=== PATIENT | female | born 1930 | race Caucasian/White ===

== ENCOUNTER 2016-04-03 15:15 | Inpatient (IN) | payer MEDICARE, OTHER ==
[~2016-04-03] VITALS: Ht 160 cm; Wt 72.6 kg
[~2016-04-03 15:15] MED LIST: COMBIGAN OPHT DR5 ML EACH EYE; HYDROCHLOROTHIA25 MG PO; LEVAQUIN500 MG PO; PLAQUENIL200 MG PO; PREDNISONE20 MG PO; STERAPRED 5MG 125 MG
[2016-04-03 17:40] VITALS: BP 129/79; BMI 28.4
[2016-04-03] MEDS ORDERED: BAYER ASPIRIN325 MG PO (19:29)
[2016-04-03] MEDS ORDERED: ACETAMINOPHEN325 MG PO (19:29)
--- NOTE | 2016-04-03 19:30 | NUR ---
PT IS RESTING IN BED WITH EYES OPEN. ALERT TO SELF ONLY. CONFUSED TO TIME PLACE AND SITUATION. UNABLE TO REORIENT PT. PT STATES: "IM ONLY HERE BECAUSE MY DAUGHTER AND SON BROUGHT ME HERE TO GET ME A ROOM." SR'S ARE UP X 3 IN BED. CALL LIGHT AND BEDSIDE TABLE ARE WITHIN EASY REACH.
[2016-04-03] MEDS ORDERED: ASPIRIN325 MG PO (19:31)
[2016-04-03] MEDS ORDERED: DULCOLAX5 MG PO (19:31)
[2016-04-03] MEDS ORDERED: ALPHAGAN 0.2%5 ML EACH EYE (19:32)
[2016-04-03] MEDS ORDERED: TIMOPTIC 0.5 % O5 ML EACH EYE (19:33)
[2016-04-03] MEDS ORDERED: BENTYL10 MG PO (19:34)
[2016-04-03] MEDS ORDERED: COLACE100 MG PO (19:35)
[2016-04-03] MEDS ORDERED: LOVENOX30 MG/0.3 SC (19:36)
[2016-04-03] MEDS ORDERED: LEXAPRO10 MG PO (19:39)
[2016-04-03] MEDS ORDERED: FUROSEMIDE20 MG PO (19:40)
[2016-04-03] MEDS ORDERED: HALDOL5 MG PO (19:41)
[2016-04-03] MEDS ORDERED: PLAQUENIL200 MG PO (19:42)
[2016-04-03] MEDS ORDERED: SYNTHROID50 MCG PO (19:42)
[2016-04-03] MEDS ORDERED: LISINOPRIL2.5 MG PO (19:43)
[2016-04-03] MEDS ORDERED: PRAVACHOL20 MG PO (19:44)
[2016-04-03] MEDS ORDERED: K-DUR20 MEQ PO (19:44)
[2016-04-03] MEDS ORDERED: PREDNISONE5 MG PO (19:46)
[2016-04-03] MEDS ORDERED: BACTRIM DS TABL1 TAB PO (19:47)
--- NOTE | 2016-04-03 21:43 | NUR ---
PT RESTING IN BED WITH EYES CLOSED. AWOKE EASILY TO VERBAL STIMULI. PT REFUSED TO TAKE ANY MEDICATIONS. SHE STATES: "IM NOT TAKING ANY MEDICINE FROM YOU, I ONLY TAKE MY OWN MEDICINE." I TRIED NUMEROUS TIMES TO TELL PT THAT THIS WAS HER MEDICINE AND ENCOURAGE HER TO TAKE IT. PT BECAME INCREASINGLY MORE AND MORE ANGRY AT ME, TELLING TO TO LEAVE HER ALONE.
--- NOTE | 2016-04-03 22:06 | NUR ---
PT CALLED FOR ASSIST TO THE BATHROOM. SHE ADAMANTLY REFUSED TO LET A MALE TAKE TO INTO THE BATHROOM.
--- NOTE | 2016-04-03 22:38 | NUR ---
PT STATED AT THIS TIME: "OH TO HECK WITH IT, I'D STAND MY GROUND, BUT I JUST HAVE TO PEE SO BAD. ASSISTED UP TO WC WITH MOD ASSIST. ASSISTED INTO BATHROOM. VOIDED INDEPENDENTLY.
--- NOTE | 2016-04-04 01:29 | NUR ---
RESTING IN BED WITH EYES CLOSED.
--- NOTE | 2016-04-04 03:36 | NUR ---
RESTING QUIETLY IN BED WITH EYES CLOSED. NO DISTRESS NOTED.
--- NOTE | 2016-04-04 03:42 | NUR ---
pt resting on left side, respirations regular and unlabored. approximately 2230 pt was praying and singing hymns. pt appears confused as to surroundings. no s/s of acute distress.
--- NOTE | 2016-04-04 06:24 | NUR ---
PT ASSISTED UP TO BATHROOM WITH MOD ASSIST. VOIDED WITHOUT DIFFICULTY. PT INSISTED ADAMANTLY TO GET DRESSED. I ENCOURAGED HER TO WAIT FOR HER OT BATH THIS AM, BUT SHE WOULD NOT AGREE TO DO IT. PT DRESSED, AND AM ADLS DONE.
[2016-04-04 08:14] LABS: BASOPHILS 0.3 % (0.0-2.0); EOSINOPHILS 0.3 % (0-7); HEMATOCRIT 43.8 % (36.0-48.0); HEMOGLOBIN 13.6 g/dL (12-16); IMMATURE GRANULOCYTES 0.2 % (0-5); LYMPHOCYTES 15.1 % (15-50); MCH 28.5 pg (26.0-34.0); MCHC 31.1 g/dL (31.0-37.0); MCV 91.8 fL (80.0-100.0); MEAN PLATELET VOLUME 11.4 fL (7.4-10.4); MONOCYTES 15.3 % (2-11); NEUTROPHILS 68.8 % (40-80); RBC 4.77 10x6/uL (4.00-5.40); RDW 14.3 % (11.5-14.5); WBC 6.5 10x3/uL (4.8-10.8)
[2016-04-04 08:18] LABS: PLATELET COUNT 211 10x3/uL (130-400)
[2016-04-04 09:00] VITALS: BP 115/54
--- NOTE | 2016-04-04 09:15 | NUR ---
SITTING UP IN WHEELCHAIR AND ASSISTED TO THERAPY. NO FALLS NOTED.
--- NOTE | 2016-04-04 11:10 | NUR ---
RESTING IN BED ON BACK WITH SIDERAILS UPX2.
[2016-04-04 11:41] VITALS: Ht 160 cm; Wt 72.6 kg
--- NOTE | 2016-04-04 13:17 | NUR ---
RESTING IN BED WITHOUT ANY PAIN NOTED.
[2016-04-04 14:20] VITALS: BP 150/71
--- NOTE | 2016-04-04 14:48 | NUR ---
PT REFUSES XANAX AND POTASSIUM PILL TODAY.
--- NOTE | 2016-04-04 15:42 | NUR ---
PT OOB AND SITTING IN CHAIR TALKING TO ROOMMATE. CONVINCED PT TO GO TO THE BR AND BACK TO BED. BOX ALARM PUT BACK ON. PT'S FAMILY CAME IN THE ROOM AFTER BACK TO BED.
--- NOTE | 2016-04-04 19:30 | NUR ---
PT IS RESTING IN BED WITH EYES OPEN. ALERT TO SELF. CONFUSED TO TIME, PLACE AND SITUATION. PT CANNOT REMEMBER ME FROM LAST NIGHT. SHE REFUSED TO TAKE HER 1900 LOVENOX, STATING SHE DID NOT TAKE MEDICINE FROM [facility]. VSS. SR'S ARE UP X 3 IN BED. CALL LIGHT AND BEDSIDE TABLE ARE WITHIN EASY REACH. BOX ALARM IS ON.
[2016-04-04 20:01] VITALS: BP 134/61
--- NOTE | 2016-04-04 21:46 | NUR ---
PT RESTING QUIETLY IN BED WITH EYES CLOSED. RESPS ARE EVEN AND UNLABORED. NO ACUTE DISTRESS NOTED.
--- NOTE | 2016-04-05 00:01 | NUR ---
RESTING IN BED WITH EYES CLOSED.
--- NOTE | 2016-04-05 03:00 | NUR ---
PT RESTING IN BED WITH EYES CLOSED.
--- NOTE | 2016-04-05 04:30 | NUR ---
PT RESTING QUIETLY, NO S/S OF ACUTE DISTRESS.
--- NOTE | 2016-04-05 05:53 | NUR ---
PT RESTING IN BED WITH EYES CLOSED. AWOKE EASILY TO VERBAL STIMULI. PT TOLERATED MEDS THIS AM WITHOUT ARGUMENT. NO NEEDS VOICED.
[2016-04-05 09:00] VITALS: BP 100/56
--- NOTE | 2016-04-05 09:15 | NUR ---
PT TOOK AM MEDS WITHOUT REFUSING. SITTING UP IN BED AND BOX ALARM ON. CALLIGHT IN REACH.
--- NOTE | 2016-04-05 12:58 | NUR ---
SLEEPING IN BED WITH SIDERAILS UP X2. BOX ALARM ON.
--- NOTE | 2016-04-05 15:10 | NUR ---
ASSISTED TO BR FROM THE BED WITH BOX ALARM ON. NO FALLS NOTED.
--- NOTE | 2016-04-05 17:44 | NUR ---
PT VOMITED SMALL UNDIGESTED FOOD AND STATES I FEEL BETTER AND INSTRUCTED PT NOT TO EAT ANYMORE.
--- NOTE | 2016-04-05 19:16 | NUR ---
PT IS RESTING IN BED WITH EYES OPEN. ALERT AND ORIENTED X 2. CONFUSED TO TIME AND SITUATION. REORIENTS EASILY, BUT FORGETS AGAIN QUICKLY. PT REPORTED TO HAVE N/V AFTER SUPPER, BUT DENIES ANY AT THIS TIME. VSS. PT IS VERY TALKATIVE. SR'S ARE UP X 3 IN BED. CALL LIGHT AND BEDSIDE TABLE ARE WITHIN EASY REACH.
[2016-04-05 20:00] VITALS: BP 112/59
--- NOTE | 2016-04-05 22:01 | NUR ---
PT. IN BED WITH HOB UP FOR COMFORT. EYES ARE CLOSED, RESP. EVEN AND CALL LIGHT WITHIN REACH.
--- NOTE | 2016-04-05 22:10 | NUR ---
PT RESTING IN BED WITH EYES CLOSED. RESPS ARE EVEN AND UNLABORED. NO ACUTE DISTRESS NOTED.
--- NOTE | 2016-04-06 00:30 | NUR ---
PT ASSISTED TO THE BATHROOM WITH MOD ASSIST. VOIDED WITHOUT DIFFICULTY. ASSISTED BACK TO BED. BOX ALARM PLACED ON PT.
--- NOTE | 2016-04-06 03:10 | NUR ---
RESTING QUIETLY IN BED WITH EYES CLOSED.
--- NOTE | 2016-04-06 05:54 | NUR ---
PT RESTING IN BED WITH EYES CLOSED. AWOKE EASILY TO VERBAL STIMULI. TOLERATED AM MEDS WITHOUT COMPLAINT. NO NEEDS VOICED.
[2016-04-06 06:34] LABS: BASOPHILS 0.3 % (0.0-2.0); EOSINOPHILS 0.8 % (0-7); HEMATOCRIT 43.9 % (36.0-48.0); HEMOGLOBIN 13.4 g/dL (12-16); IMMATURE GRANULOCYTES 0.2 % (0-5); MCHC 30.5 g/dL (31.0-37.0); MCV 91.8 fL (80.0-100.0); MEAN PLATELET VOLUME 11.9 fL (7.4-10.4); MONOCYTES 14.5 % (2-11); NEUTROPHILS 65.2 % (40-80); PLATELET COUNT 215 10x3/uL (130-400); RBC 4.78 10x6/uL (4.00-5.40); RDW 14.3 % (11.5-14.5); WBC 6.6 10x3/uL (4.8-10.8)
--- NOTE | 2016-04-06 07:00 | NUR ---
Received pt. in room in wheelchair at the beginning of this shift. She had just returned from the bathroom. She was alert but confused. She denied any pain or discomfort. Vital signs: Temp. 97.6, pulse 72, resp. 14, b/p 121/58, 02Sat. 97%. Will be monitoring her and assisting prn with adl's.
[2016-04-06 07:09] LABS: ANION GAP 11.3 mmol/L (8-16); CALCIUM 8.9 mg/dL (8.5-10.1); CARBON DIOXIDE 30.1 mmol/L (21.0-32.0); CREATININE - SERUM 0.9 mg/dL (0.6-1.3); POTASSIUM - SERUM 4.4 mmol/L (3.5-5.1)
[2016-04-06 09:40] VITALS: BP 121/58
--- NOTE | 2016-04-06 12:18 | NUR ---
Pt. is sitting in her wheelchair eatting her lunch in her room. No signs of any discomfort or distress. Pt. got a shower this morning. Bed linens changed as well. Call light is in reach.
--- NOTE | 2016-04-06 14:44 | RHP ---
PATIENT: SAROJ WELCH MEDICAL RECORD: [id number] ACCOUNT: [id number] LOCATION:[facility]8 : 30 ADMISSION DATE: 04/03/16 REHABILITATION HISTORY AND PHYSICAL EXAMINATION POST ADMISSION PHYSICIAN EXAMINATION DATE OF ADMISSION: 04/03/2016 MAIN DIAGNOSES: Acute right middle cerebral artery infarction, acute encephalopathy secondary to urinary tract infection. HISTORY OF PRESENT ILLNESS: The patient is an 86-year-old female patient, who is admitted to acute rehab for acute ischemic stroke. She presented to the Emergency Department via EMS on March 29 after the patient pushing her lifeline did have fallen off the commode due unable to get up secondary to left-sided weakness affecting her face, arm and leg. Her symptoms improved in the ED. She has a history of right middle cerebral artery infarction in 2011 with reported residual mid left leg weakness. CT showed a remote stroke on the right middle cerebral artery territory, look more extensive on recent CT compared to 2012. There is some moderate small vessel ischemic changes also on the scan. She is doing somewhat better, but would definitely require inpatient rehab to get back to prior level of functioning. COMORBIDITIES: Include urinary tract infection, ejection fraction of 15%, dysarthria, left-sided weakness, coronary artery disease, rheumatoid arthritis, hypothyroidism, autoimmune disease, congestive heart failure, prior cerebrovascular accident, glaucoma, osteoporosis, advanced aged, left foot pain secondary to recent, a former smoker, and frequent falls. PAST MEDICAL HISTORY: Significant for cerebrovascular accident, rheumatoid arthritis, coronary artery disease, hypertension, chronic obstructive pulmonary disease, hypothyroidism, autoimmune disease, congestive heart failure, colon polyps, glaucoma, incontinence, osteoporosis and some depression. PAST SURGICAL HISTORY: Includes an ankle fusion, cataract removal, hysterectomy and pacemaker placement. ALLERGIES: PENICILLIN AND CELEBREX. CURRENT MEDICATIONS: Include Florinex 460 mg daily, prednisone 5 mg daily, lisinopril 2.5 mg daily, Synthroid 50 mcg daily, furosemide 10 mg daily, Lexapro 10 mg daily, Bactrim 1 tab b.i.d., Pravachol 20 mg at bedtime, potassium 10 mEq t.i.d., Plaquenil 200 mg b.i.d., Lovenox 30 mg subQ q.12 hours, Colace 100 mg b.i.d., Bentyl 10 mg daily, Timoptic eyedrops b.i.d., Alphagan eyedrops b.i.d., and acetaminophen 325 mg q.4 hours p.r.n. HABITS: No current alcohol or tobacco use. He is a former smoker. FAMILY HISTORY: Noncontributory. SOCIAL HISTORY: The patient is . She lives alone and would like to get back to her prior level of function and return home. REVIEW OF SYSTEMS: GENERAL: Does complain of some weakness. HISTORY AND PHYSICAL [id number] SAROJ WELCH HEENT: Denies cold, cough, or congestion. CARDIOVASCULAR: Denies chest pain. LUNGS: Does not complain of any shortness of breath. PHYSICAL EXAMINATION: VITAL SIGNS: Stable, afebrile. GENERAL: Elderly female in no acute distress upon exam. HEENT: Normocephalic and atraumatic. Mucosa is moist. NECK: Supple. No lymphadenopathy. LUNGS: Clear at this time. HEART: Regular rate and rhythm. ABDOMEN: Benign. EXTREMITIES: No clubbing, cyanosis or edema. NEUROLOGIC: Consistent with a right-sided stroke with left-sided weakness noted. I see no obvious facial drooping at this time. LABORATORY DATA: Her white count of 6.5, H&H 13 and 43 and platelet count is noted to be 211. Her BNP is elevated at 10,960. ASSESSMENT: This is an 86-year-old female patient admitted to rehab with a working diagnosis of right middle cerebral artery infarction affecting her left side. The patient has potential to make improvement. We instituted the following multidisciplinary therapies including to, but not limited to physical, occupational, respiratory, speech, nutritional services, prosthetics and orthotics. Given her complex condition and risk for more complications, rehabilitation services cannot be provided at a lower level of care such as a [facility] facility. PLAN: 1. Admit to [facility] rehab for intensive inpatient therapy to include the following disciplines: A. Physical therapy to improve gait, all transfer skills and bed mobility to a modified independent level. B. Occupational therapy to improve activities of daily living to a modified independent level. C. Case management to assist with discharge planning and placement options. D. Nutrition to assist with nutritional needs. E. Rehabilitation nursing to assist in monitoring the patient's underlying medical conditions and to assist with any type of bowel or bladder management. 2. The patient's current medication and medical care will be continued. 3. The patient will be placed on standard fall precautions. 4. The patient's estimated length of stay is approximately 10-14 days. 5. Discuss this patient during care team staff meeting this week. TRANSINT:[id number] Voice Confirmation ID: [id number] DOCUMENT ID: [id number] HISTORY AND PHYSICAL [id number] SAROJ WELCH SCOTT MD at 1444 CC: [id number] DICTATION DATE: 04/04/16 1100 BOILER HOUSE INSPECTOR: 04/04/16 1151 ADM IN [place] [id number] [place] [id number]
--- NOTE | 2016-04-06 19:20 | NUR ---
IN BED AWAKE. DENIES NEEDS.
--- NOTE | 2016-04-06 21:40 | NUR ---
PATIENT IN BED, AWAKE. ASSISTED HER UP TO BR TO URINATE, AND THEN BACK TO BED.
[2016-04-06 22:15] VITALS: BP 148/65
--- NOTE | 2016-04-06 23:10 | NUR ---
ASSESSMENT AND HS MEDS COMPLETE. DENIES NEEDS AT THIS TIME.
--- NOTE | 2016-04-06 23:50 | NUR ---
PATIENT IN BED, DOZING. NO DISTRESS NOTED.
--- NOTE | 2016-04-07 02:00 | NUR ---
RESTING IN BED, EYES CLOSED.
--- NOTE | 2016-04-07 04:00 | NUR ---
IN BED, RESTING QUIETLY, EYES CLOSED. RESPIRATIONS UNLABORED.
--- NOTE | 2016-04-07 04:00 | NUR ---
IN BED, EYES CLOSED. HOB UP 30 DEGREES. RESPIRING QUIETLY.
--- NOTE | 2016-04-07 05:45 | NUR ---
ASSISTED PATIENT UP TO BR TO URINATE. SAYS SHE WILL DO THERAPY IN CURRENT PJ'S. REMAINED CONTINENT THROUGHOUT THE NIGHT. DENIES NEEDS.
--- NOTE | 2016-04-07 06:00 | NUR ---
IN BED, REMAINS IN GOWN FOR O/T EVAL LATER THIS MORNING.
[2016-04-07 09:19] VITALS: BP 99/51
--- NOTE | 2016-04-07 09:56 | NUR ---
Pt. was received this morning at the start of this shift. She was awake but reclined back in bed at a 20% angle. Alert and oriented x 2. Denies any pain or discomfort. She requires instruction to get out of bed and into wheelchair and onto commode. She could not follow instruction to stand up and hold onto bar in front of commode and sit on commode. She stood up and held onto bar and sat back down in wheelchair. On the second instruction she was able to understand to sit down on the commode. She is friendly and cooperative with staff. Vital signs: Temp. 97.9, pulse 82, resp. 14, b/p 99/51, 02Sat. 95%. She will be monitored throughout this shift and assisted prn with adl's.
--- NOTE | 2016-04-07 19:00 | NUR ---
IN BED, AWAKE. DENIES NEEDS.
[2016-04-07 21:10] VITALS: BP 124/66
--- NOTE | 2016-04-07 21:10 | NUR ---
ASSESSMENT AND VS COMPLETED AFTER ASSISTING PATIENT UP TO BR TO URINATE, AND THEN BACK TO BED. DENIES CURRENT NEEDS.
--- NOTE | 2016-04-07 22:10 | NUR ---
AWOKE PATIENT AND GAVE HER SCHEDULED HS MEDS. QUITE CONFUSED INITIALLY. REMAINS ORIENTED TO SELF AND GENERALLY TO PLACE.
--- NOTE | 2016-04-08 00:15 | NUR ---
RESTING IN BED, EYES CLOSED.
--- NOTE | 2016-04-08 02:00 | NUR ---
CONTINUES IN BED, EYES CLOSED. RESTING QUIETLY.
--- NOTE | 2016-04-08 04:30 | NUR ---
RESTING QUIETLY IN BED. RESPIRATONS UNLABORED.
--- NOTE | 2016-04-08 06:00 | NUR ---
GAVE PATIENT SCHEDULED 0600 MEDS. REPOSITIONED HER IN BED FOR COMFORT.
[2016-04-08 07:50] VITALS: BP 127/69
--- NOTE | 2016-04-08 09:24 | NUR ---
SITTING IN WHEELCHAIR IN THERAPY ROOM WORKING WITH THERAPY. NO NEEDS VOICED.
--- NOTE | 2016-04-08 11:40 | NUR ---
AMBULATING IN HALLWAY WITH WALKER AND THERAPY. BACK TO ROOM IN WHEELCHAIR NO NEEDS VOICED.
--- NOTE | 2016-04-08 13:47 | NUR ---
Nutrition Follow Up: Pt was asleep at the time of RD visit. Chart reviewed. Diet: Regular PO Intake: 34% (8 meal avg) +BM 04/06/16 No new wt Meds: Prednisone, Lasix, Synthroid Labs noted Pt continues with poor po intake. Pt refuses Ensure per previous RD note. Will send Mighty Shakes BID. Pt may benefit from an appetite stimulant. RD following.
--- NOTE | 2016-04-08 13:47 | NUR ---
RESTING IN BED WITH SIDERAILS UP X2.
--- NOTE | 2016-04-08 15:50 | NUR ---
RESTING IN BED WITHOUT ANY NEEDS VOICED.
--- NOTE | 2016-04-08 17:21 | NUR ---
CARE TEAM MEETING: PATIENT TENATIVE DISCHARGE DATE IS 04/17/15. FAMILY ATTENDED MEETING. PCP IS DR. GALVAN. WILL CONTINUE TO FOLLOW WITH PATIENT UNTIL SHE IS DISCHARGED SHE WILL DISCHARGE TO ASSISTED LIVING.
--- NOTE | 2016-04-08 17:30 | NUR ---
SITTING IN WHEELCHAIR WITH BEDSIDE TABLE IN FRONT OF PT. NO FALLS NOTED.
--- NOTE | 2016-04-08 19:10 | NUR ---
PATIENT IN BED, AWAKE. DENIES NEEDS.
[2016-04-08 20:14] VITALS: BP 104/40
--- NOTE | 2016-04-08 20:40 | NUR ---
REMAINS IN BED, DENIES NEEDS.
--- NOTE | 2016-04-08 21:45 | NUR ---
ASSESSMENT AND HS MEDS COMPLETE. REPOSITIONED PATIENT UP IN BED AND ASSISTED HER TO TURN TO LEFT SIDELYING POSITION.
--- NOTE | 2016-04-09 00:15 | NUR ---
RESTING QUIETLY IN BED ON LEFT SIDE. NO DISTRESS NOTED.
--- NOTE | 2016-04-09 02:40 | NUR ---
RESTING QUIETLY IN BED, EYES CLOSED.
--- NOTE | 2016-04-09 04:35 | NUR ---
IN BED, EYES CLOSED. RESPIRATIONS QUIET AND UNLABORED.
--- NOTE | 2016-04-09 05:45 | NUR ---
AWOKE PATIENT AND GAVE HER PO MEDS TO HER. FABRIC MACHINE OPERATOR RECENTLY ASSISTED PATIENT TO [place] FOR THERAPY.
[2016-04-09 08:15] VITALS: BP 108/58
--- NOTE | 2016-04-09 09:56 | NUR ---
SITTING IN WHEELCHAIR IN THERAPY ROOM EXERCISING LEGS.
--- NOTE | 2016-04-09 13:14 | NUR ---
SITTING IN WHEELCHAIR EATING LUNCH.
--- NOTE | 2016-04-09 15:01 | NUR ---
SLEEPING IN BED WITH MONICO ALARM ON . CALLIGHT IN REACH.
--- NOTE | 2016-04-09 17:21 | NUR ---
SITTING IN WHEELCHAIR WITH FAMILY IN THE ROOM.
--- NOTE | 2016-04-09 19:10 | NUR ---
PATIENT IN BED, AWAKE. DENIES NEEDS.
--- NOTE | 2016-04-09 21:35 | NUR ---
PATIENT RESTING IN BED, EYES CLOSED
[2016-04-09 22:54] VITALS: BP 115/61
--- NOTE | 2016-04-09 23:10 | NUR ---
ASSESSMENT AND HS MEDS COMPLETE. DENIES FURTHER NEEDS.
--- NOTE | 2016-04-10 00:15 | NUR ---
RESTING IN BED ON LEFT SIDE. NO DISTRESS NOTED.
--- NOTE | 2016-04-10 02:15 | NUR ---
RESTING IN BED ON LEFT SIDE.
--- NOTE | 2016-04-10 06:25 | NUR ---
ASSISTED PATIENT UP TO BR TO CHANGE HER CLOTHES. URINATED WHILE ON COMMODE. ON RETURN TO BED, GAVE HER SCHEDULED MEDICATIONS.
[2016-04-10 08:16] LABS: BASOPHILS 0.2 % (0.0-2.0); EOSINOPHILS 0.6 % (0-7); HEMATOCRIT 40.9 % (36.0-48.0); HEMOGLOBIN 12.4 g/dL (12-16); IMMATURE GRANULOCYTES 0.2 % (0-5); LYMPHOCYTES 12.9 % (15-50); MCH 27.7 pg (26.0-34.0); MCHC 30.3 g/dL (31.0-37.0); MCV 91.3 fL (80.0-100.0); MEAN PLATELET VOLUME 11.6 fL (7.4-10.4); MONOCYTES 13.4 % (2-11); NEUTROPHILS 72.7 % (40-80); PLATELET COUNT 201 10x3/uL (130-400); RBC 4.48 10x6/uL (4.00-5.40); RDW 14.5 % (11.5-14.5); WBC 6.5 10x3/uL (4.8-10.8)
[2016-04-10 08:36] LABS: ANION GAP 11.5 mmol/L (8-16); CALCIUM 8.5 mg/dL (8.5-10.1); CARBON DIOXIDE 29.6 mmol/L (21.0-32.0); CREATININE - SERUM 0.8 mg/dL (0.6-1.3); POTASSIUM - SERUM 5.1 mmol/L (3.5-5.1)
--- NOTE | 2016-04-10 09:16 | NUR ---
SITTING IN WHEELCHAIR AND TOOK AM PILLS. BOX ALARM ON. CALLIGHT IN REACH.
[2016-04-10 10:33] VITALS: BP 107/65
--- NOTE | 2016-04-10 13:25 | NUR ---
SITTING IN WHEELCHAIR WITH BOX ALARM ON.
--- NOTE | 2016-04-10 15:05 | NUR ---
SITTING IN WHEELCHAIR WITHOUT ANY NEEDS VOICED.
--- NOTE | 2016-04-10 17:45 | NUR ---
ASSISTED PT TO BR AND VOIDED YELLOW URINE. BACK TO WHEELCHAIR FOR DINNER.
--- NOTE | 2016-04-10 19:30 | NUR ---
PT RESTING QUIETLY EYES CLOSED, RESPIRATIONS REGULAR AND UNLABORED. NO S/S OF ACUTE DISTRESS.
--- NOTE | 2016-04-10 20:30 | NUR ---
AWOKE PATIENT FOR PM MEDS, PT PLEASANT, ASKED NAME, REORIENTED TO SURROUNDINGS, HOWEVER BELIEVES LOTS OF PEOPLE OF COOKING. ASSISTED PT WITH COMPLETING HER MENU. PT STATES SHE IS TIRED OF THE FOOD AND WOULD LIKE SOMETHING DIFFERENT. ASSISTED WITH REPOSITIONING IN BED AND LINEN.
[2016-04-10 21:37] VITALS: BP 123/62
--- NOTE | 2016-04-11 04:09 | NUR ---
PT RECALLED MY NAME, WONDERING ABOUT THE PEACH PIE SHE THOUGHT i WAS MAKING AND WHY I WAS HERE ALL NIGHT. PT STATES COULDN'T SLEEP BECAUSE THE BLANKET WAS TO HEAVY AND HER SOCK CAME OFF. ASSISTED PATIENT WITH REPOSITIONING, PUT ON HER SOCK, AND STRAIGHTENED THE TOP LINEN. PT IN NO S/S OF ACUTE DISTRESS.
--- NOTE | 2016-04-11 07:00 | NUR ---
Pt. was received at the beginning of this shift. She was alert and oriented x 2. She denies any pain or discomfort at this time. She is pleasantly confused. She is in bed with bed alarm device on and working properly. She requires assist with adl's. Will be monitoring her throughout this shift and following her plan of care. No distress found. Call light in reach.
--- NOTE | 2016-04-11 12:00 | NUR ---
Pt. is having an uneventful day. She is putting on her call light when she needs to go to the bathroom for assist. She is very social with her roommate and their family.
[2016-04-11 13:39] VITALS: BP 117/67
--- NOTE | 2016-04-11 16:50 | NUR ---
Pt. took a nap this afternoon and rested well. No signs of any discomfort or distress.
[2016-04-11 19:12] VITALS: BP 124/67
--- NOTE | 2016-04-11 19:48 | NUR ---
PT RESTING IN BED, VERY TALKATIVE.
--- NOTE | 2016-04-12 01:04 | NUR ---
pt awake, requested blanket, blanket provided no other needs noted, pt no s/s of acute distress.
--- NOTE | 2016-04-12 03:19 | NUR ---
VERBALIZED DISCOMFORT WITH HER BRIEFS, LOOSENED, THEN PATIENT ASKED FOR NECK RUB. PT CONFUSED TO SITUATION.
--- NOTE | 2016-04-12 06:30 | NUR ---
pleasantly disoriented, sm bm, no s/s of acute distress did c/o laying in bed too long, is sitting in w/c watching tv.
[2016-04-12 07:00] VITALS: BP 117/60
--- NOTE | 2016-04-12 07:00 | NUR ---
PT WAS RECEIVED THIS MORNING AT 0700. SHE IS ALERT BUT CONFUSED TO SITUATIONS. SHE IS ORIENTED TO SELF AND PLACE ONLY. VITAL SIGNS; TEMP. 97.8, PULSE 64, RESP. 14, B/P 117/60, 02SAT. 96%. SHE REQUIRES ASSIST WITH ADL'S. PT. CANNOT STAND UP FROM A SITTING POSITION WITHOUT HANDS ON HELP FROM STAFF. NO SIGNS OF ANY DISCOMFORT OR DISTRESS. CALL LIGHT IN REACH. NO COMPLAINTS OR NEEDS VOICED AT THIS TIME.
--- NOTE | 2016-04-12 17:31 | NUR ---
Pt has had an uneventful shift. She puts on her call light when she needs to go to the bathroom. She does need help in standing up from a sitting position though. She remains alert and oriented x 2. Family came and visited this afternoon. No changes in health status to note. Stable condition. Assist given as needed.
[2016-04-12 22:05] VITALS: BP 162/70
--- NOTE | 2016-04-13 01:13 | NUR ---
PT RESTING, EYES CLOSED NO S/S OF ACUTE DISTRESS.
--- NOTE | 2016-04-13 02:57 | NUR ---
pt awake and assisted to bathroom. no s/s of acute distress.
--- NOTE | 2016-04-13 06:10 | NUR ---
PT REQUESTED WARM BLANKET. NO S/S OF ACUTE DISTRESS.
[2016-04-13 06:21] LABS: BASOPHILS 0.3 % (0.0-2.0); EOSINOPHILS 1.7 % (0-7); HEMATOCRIT 41.6 % (36.0-48.0); HEMOGLOBIN 12.6 g/dL (12-16); IMMATURE GRANULOCYTES 0.2 % (0-5); LYMPHOCYTES 14.8 % (15-50); MCHC 30.3 g/dL (31.0-37.0); MCV 92.4 fL (80.0-100.0); MEAN PLATELET VOLUME 11.8 fL (7.4-10.4); MONOCYTES 11.2 % (2-11); NEUTROPHILS 71.8 % (40-80); PLATELET COUNT 234 10x3/uL (130-400); RDW 14.7 % (11.5-14.5); WBC 6.6 10x3/uL (4.8-10.8)
[2016-04-13 06:36] LABS: CALCIUM 8.3 mg/dL (8.5-10.1); CARBON DIOXIDE 29.7 mmol/L (21.0-32.0); CREATININE - SERUM 0.8 mg/dL (0.6-1.3); POTASSIUM - SERUM 4.7 mmol/L (3.5-5.1)
--- NOTE | 2016-04-13 07:30 | NUR ---
SITTING UP IN WC.DENIES PAIN.ASSESSMENT COMPLETED.NO SIGNS OF ACUTE DISTRESS.BED IN LOW POSITION AND CL IN EASY REACH.ASSISTED TO BATHROOM IN WC.HAD LOOSE BM AND VOIDED.WILL CONTINUE WITH PLAN OF CARE.
[2016-04-13 09:02] VITALS: BP 137/73
--- NOTE | 2016-04-13 19:15 | NUR ---
PT. IN BED LYING ON HER LEFT SIDE AND IS CAUGHT UP IN HER LINENS AND NEEDS HELP GETTING UNTANGLED CAUSE SHE CAN'T USE HER RIGHT HAND DUE TO ARTHRITIS. PT. POSITIONED HERSELF TO COMFORT. ASSESSMENT COMPLETE. PT. HAS NO VOICED NEEDS AT THIS TIME BUT WOULD LIKE HER XANAX TONIGHT WITH NIGHT TIME MEDS SO SHE CAN SLEEP CAUSE SHE HASN'T SLEEP THE LAST 2 NIGHTS. CALL LIGHT WITHIN REACH.
[2016-04-13 20:30] VITALS: BP 130/57
--- NOTE | 2016-04-14 00:15 | NUR ---
PT'S BED ALARM GOING OFF. FOUND PT. SITTING AT END OF THE BED CONFUSED AND TRYING TO GET THE COVERS PULLED OUT OF THE END OF THE BED WHERE THEY WERE TUCKED IN. ASSISTED PT. TO GET BACK ON HER BED AND PT. POSITIONED HERSELF BEST SHE COULD AT THIS TOP OF THE MATTRESS THEN STARTED C/O OF SOB. PT. MOUTH BREATHING SO INSTRUCTED HER TO BREATHE IN THRU HER NOSE AND OUT THRU HER MOUTH AND DEMONSTRATED TO HER AND SHE TRIED BUT WAS UNSUCCESSFUL. RT OUT IN THE [place]TONIO WAY AND OVERHEARD OUR CONVERSATION. JOSE DANIEL, RT CAME IN AND CHECKED PT'S PULSE OX AND IT WAS IN THE 80'S SO JOSE DANIEL PLACED PT. ON 2L/MIN O2 AND PULSE OX CAME UP WNL'S. PT. HOB UP FOR COMFORT AND WITHIN 10MIN. PT'S EYES WERE CLOSED AND RESP. EVEN. CALL LIGHT WITHIN REACH.
--- NOTE | 2016-04-14 02:04 | NUR ---
PT. LYING IN BED WITH HOB UP FOR COMFORT WITH NASAL O2 AT 2/MIN AND HER EYES ARE CLOSED AND RESP. EVEN. CALL LIGHT WITHIN REACH.
--- NOTE | 2016-04-14 03:50 | NUR ---
FOUND PT. SITTING ON THE SIDE OF HER BED WITH HER PILLOW ON HER BEDSIDE TABLE AND NOT WEARING HER O2. PT. C/O SOB AND MOUTH BREATHING. REPLACED PT'S O2 AND INSTRUCTED HER AGAIN ON HOW TO BREATHE WITH 02; IN THRU THE NOSE AND OUT THRU THE MOUTH. YOU CAN HEAR AUDIBLE WHEEZES WHEN SHE IS BREATHING IN THRU HER MOUTH. ASSISTED PT. TO BATHROOM TO URINATE AND THEN ASSISTED PT. BACK TO BED. HAD TO SEVERAL TIMES REINFORCE BREATHING TEQUNIQUE SHE WOULD GET SOB WITH ANY EXERTION AND THEN ONCE SHE STARTED BREATHING PROPERLY THE SOB WOULD STOP. ONCE POSITIONED TO COMFORT AND COVERED PT. RELAXED AND CLOSED HER EYES AND BREATHING WAS NORMAL. CALL LIGHT WITHIN REACH.
--- NOTE | 2016-04-14 07:20 | NUR ---
AROUSES EASILY FOR ASSESSMENT.DENIES ANY NEEDS AT PRESENT.NO SIGNS OF ACUTE DISTRESS.CL IN EASY REACH,BED IN LOW POSITION.BED ALARM ON AND WORKING.
[2016-04-14 08:33] VITALS: BP 129/70
--- NOTE | 2016-04-14 12:21 | NUR ---
Nutrition Follow Up: Chart reviewed. Diet: Regular; Mighty Shakes BID PO Intake: 67% (9 meal avg) +BM 04/13/16 No new wt Labs noted Meds: Lasix, Prednisone Pt po intake has improved greatly. Rec continue current diet, supplement regimen. RD following.
--- NOTE | 2016-04-14 19:20 | NUR ---
SITTING UP IN W/C AT BEDSIDE. SAYS SHE FEELS SOMEWHAT ANXIOUS. WANTS XANAX WITH HER BEDTIME MEDICATIONS.
[2016-04-14 21:00] VITALS: BP 148/74
--- NOTE | 2016-04-14 21:00 | NUR ---
ASSESSMENT AND HS MEDS COMPLETE. GAVE PATIENT XANAX 0.25MG PO FOR C/O ANXIETY. REPORTS SHE WAS HAVING TROUBLE BREATHING LAST NIGHT AND EXPRESSES SHE IS FEARFUL OF THE SAME TONIGHT. PATIENT IS DISCHARGING TOMORROW AND TYPICALLY PATIENTS ARE A BIT ANXIOUS THEIR LAST NIGHT. BREATH SOUNDS ARE DIMINISHED IN ALL [place] BUT PULSEOX IS 95% ON ROOM AIR. CXR TODAY SHOW NO SIGNIFICANT CHANGES FROM PREVIOUS STUDY.
--- NOTE | 2016-04-14 22:30 | NUR ---
RESTING IN BED, EYES CLOSED.
--- NOTE | 2016-04-14 22:30 | NUR ---
AWOKE PATIENT TO REPOSITION HER HIGHER UP IN BED AND TO COVER HER UP SHE WAS DIAGONAL IN BED, UNCOVERED.
--- NOTE | 2016-04-14 23:15 | NUR ---
ASSISTED PATIENT UP TO BR TO URINATE. REMAINS ANXIOUS. SAYS HAVING DIFFICULTY BREATHING (THIS ALSO OCCURRED LAST NIGHT, PER NURSING REPORT). ON RETURN TO BED. EMPLACE NASAL CANNULA WITH O2 @ 2L. PATIENT IMMEDIATELY BEGAN TO CALM, I THINK NOT SO MUCH DUE TO THE O2 WHICH HAD NOT HAD ENOUGH TIME TO TAKE EFFECT, BUT RATHER BECAUSE OF THE IDEA THAT SHE WILL DO BETTER ON THE OXYGEN. NURSE Winston CUNHA RN REPORTS THAT PATIENT BECOMES A MOUTH BREATHER WITH EVER INCREASING RR WHEN SHE IS ANXIOUS. THIS WAS OBSERVED LAST NIGHT BY NURSE CUNHA AND ALSO BY JOSE DANIEL ELLIS R/TGladys
--- NOTE | 2016-04-15 00:20 | NUR ---
RESTING QUIETLY IN BED, EYES CLOSED. CONTINUES ON O2 PER N/C @ 2L FLOW.
--- NOTE | 2016-04-15 02:05 | NUR ---
RESTING IN BED, EYES CLOSED. NO DISTRESS EVIDENT.
--- NOTE | 2016-04-15 04:00 | NUR ---
PATIENT WAS ASSISTED UP TO BR AND BACK TO BED. DENIES FURTHER NEEDS.
--- NOTE | 2016-04-15 06:35 | NUR ---
ASSISTED PATIENT TO DRESS AFTER R/T UPDRAFT. GAVE PATIENT SCHEDULED 0600 MEDS.
[2016-04-15 08:26] VITALS: BP 121/55
--- NOTE | 2016-04-15 11:37 | NUR ---
PATIENT DISCHARGING HOME TO [facility]. [facility] WILL PROVIDE NURSING, PT, OT. PATIENT HAS WALKER AND WHEELCHAIR. APPOINTMENT: DR. GALVAN 04/24/15 @ 9:00. PATIENT CHOICE FOR HOME HEALTH AND FM FORM SIGNED , EXPLAINED AND FILED IN CHART. ORDERS HAVE BEEN FAXED WITH CONFORMATION RECIEVED
--- NOTE | 2016-06-10 12:28 | DS ---
PATIENT:SAROJ WELCH :30 MEDICAL RECORD: [id number] DISCHARGE SUMMARY ADMISSION DATE: 04/03/16 DISCHARGE DATE: 04/15/16 This is a discharge dated 04/15/2016 from the inpatient rehab. PRIMARY DIAGNOSES: Decreased functional ability and ability to provide activities of daily living secondary to an acute cerebrovascular accident. SECONDARY DIAGNOSES: 1. Acute encephalopathy secondary to urinary tract infection. 2. Urinary tract infection. 3. Hypothyroidism. 4. Hypokalemia. 5. Hyperlipidemia. 6. Hypothyroidism. 7. Coronary artery disease. 8. Hypertension. 9. Chronic obstructive pulmonary disease. 10. Rheumatoid arthritis. 11. Congestive heart failure. 12. Depression. 13. Glaucoma. 14. Osteoporosis. 15. Constipation. HOSPITAL COURSE: Full H&P is located elsewhere on the chart on this 86-year-old female, who was admitted to inpatient rehab for physical therapy and occupational therapy to improve gait, transfer skills, bed mobility, and activities of daily living to a modified independent level. She was evaluated by PT and OT and their plans of care were followed. She required half-way care for observation and assessment, medication administration. She remained on Bactrim for antibiotic coverage with UTI. Electrolytes were managed by protocol. She was cooperative with therapies, progressing towards goals. She developed some shortness of breath. Chest x-ray was clear. She was started on updrafts and prednisone. Her symptoms improved. She was considered stable for discharge on 04/15/2016. DISCHARGE MEDICATIONS: As per discharge medication reconciliation. DISCHARGE DISPOSITION: The patient is discharged home. She lives in [facility]. She will continue her current diet and level of activity and will have home health for nursing, PT and OT. She will follow with primary care at [facility] and specialists as directed. TRANSINT:[id number] Voice Confirmation ID: [id number] DOCUMENT ID: [id number] Dictated By: ANGELIKA CALDERON I have interviewed/examined the above patient and agree with these documented findings. DISCHARGE SUMMARY REPORT [id number] SAROJ WELCH SCOTT MD at 1228 at 1231 CC: [id number] DICTATION DATE: 06/06/16 1524 HOTEL REGISTRATION CLERK: 06/07/16 0418 DIS IN 04/15/16 [facility] [address] [place] [address]
== END 2016-04-15 12:20 | disposition home health service (06) | DRG 65 ==
LOC: D.REHAB 15:15
PROVIDERS: ADMIT Emergency Medicine
DX: I63.50 Cerebral infarction due to unspecified occlusion or stenosis of unspecified cerebral artery (principal); N39.0 Urinary tract infection, site not specified; I69.354 Hemiplegia and hemiparesis following cerebral infarction affecting left non-dominant side; R47.1 Dysarthria and anarthria; I25.10 Atherosclerotic heart disease of native coronary artery without angina pectoris; M06.9 Rheumatoid arthritis, unspecified; E03.9 Hypothyroidism, unspecified; M35.9 Systemic involvement of connective tissue, unspecified; H40.9 Unspecified glaucoma; M81.0 Age-related osteoporosis without current pathological fracture; M79.672 Pain in left foot; Z87.891 Personal history of nicotine dependence; Z91.81 History of falling; J44.9 Chronic obstructive pulmonary disease, unspecified; I11.0 Hypertensive heart disease with heart failure; I50.9 Heart failure, unspecified; Z66 Do not resuscitate

== ENCOUNTER 2016-06-15 17:02 | Emergency (ER) | payer MEDICARE, OTHER ==
[2016-04-04 11:41] VITALS: BMI 28.3
[~2016-06-15 17:02] MED LIST changes: +ACETAMINOPHEN325 MG PO; +ALPHAGAN 0.2%5 ML EACH EYE; +ASPIRIN325 MG PO; +BACTRIM DS TABL1 TAB PO; +BAYER ASPIRIN325 MG PO; +BENTYL10 MG PO; +COLACE100 MG PO; +DULCOLAX5 MG PO; +FUROSEMIDE20 MG PO; +HALDOL5 MG PO; +K-DUR20 MEQ PO; +LEXAPRO10 MG PO; +LISINOPRIL2.5 MG PO; +LOVENOX30 MG/0.3 SC; +PRAVACHOL20 MG PO; +PREDNISONE5 MG PO; +SYNTHROID50 MCG PO; +TIMOPTIC 0.5 % O5 ML EACH EYE
[2016-06-15 17:46] LABS: ALBUMIN 3.3 g/dL (3.4-5.0); ANION GAP 10.2 mmol/L (8-16); BILIRUBIN - TOTAL 0.36 mg/dL (0.2-1.3); CARBON DIOXIDE 36.4 mmol/L (21.0-32.0); CREATININE - SERUM 1.2 mg/dL (0.6-1.3); POTASSIUM - SERUM 3.6 mmol/L (3.5-5.1); PROTEIN - SERUM 7.5 g/dL (6.4-8.2)
[2016-06-15 18:11] LABS: BASOPHILS 0.3 % (0.0-2.0); EOSINOPHILS 0.1 % (0-7); HEMATOCRIT 42.5 % (36.0-48.0); HEMOGLOBIN 12.9 g/dL (12-16); IMMATURE GRANULOCYTES 0.4 % (0-5); LYMPHOCYTES 25.4 % (15-50); MCH 29.3 pg (26.0-34.0); MCHC 30.4 g/dL (31.0-37.0); MCV 96.6 fL (80.0-100.0); MEAN PLATELET VOLUME 11.3 fL (7.4-10.4); MONOCYTES 14.8 % (2-11); PLATELET COUNT 235 10x3/uL (130-400); RDW 16.1 % (11.5-14.5); WBC 7.8 10x3/uL (4.8-10.8)
[2016-06-15 19:52] LABS: APPEARANCE CLEAR (CLEAR); BILIRUBIN NEGATIVE (NEGATIVE); COLOR YELLOW (YELLOW); GLUCOSE NEGATIVE (NEGATIVE); KETONE NEGATIVE (NEGATIVE); LEUKOCYTE ESTERASE NEGATIVE (NEGATIVE); NITRITE NEGATIVE (NEGATIVE); PROTEIN NEGATIVE (NEGATIVE); UROBILINOGEN NORMAL (NORMAL)
== END 2016-06-15 20:15 | disposition home or self-care (01) ==
LOC: D.ER 17:02
PROVIDERS: Emergency Medicine
DX: R53.1 Weakness (principal); Z86.73 Personal history of transient ischemic attack (TIA), and cerebral infarction without residual deficits

== ENCOUNTER 2016-12-15 16:08 | Inpatient (IN) | payer MEDICARE, OTHER ==
[~2016-12-15] VITALS: Ht 160 cm; Wt 58.5 kg
[~2016-12-15 16:08] MED LIST changes: -ACETAMINOPHEN325 MG PO; +ACETAMINOPHEN500 M1 PO; -K-DUR20 MEQ PO; +KLOR-CON 1010 MEQ PO; -LEXAPRO10 MG PO; +LEXAPRO20 MG PO
[2016-12-15 17:01] LABS: BASOPHILS 0.2 % (0-2); EOSINOPHILS 0.3 % (0-7); HEMATOCRIT 36.9 % (36.0-48.0); HEMOGLOBIN 11.4 g/dL (12-16); IMMATURE GRANULOCYTES 0.2 % (0-5); LYMPHOCYTES 18.1 % (15-50); MCH 30.7 pg (26.0-34.0); MCHC 30.9 g/dL (31.0-37.0); MCV 99.5 fL (80.0-100.0); MEAN PLATELET VOLUME 10.4 fL (7.4-10.4); MONOCYTES 8.2 % (2-11); PLATELET COUNT 215 10x3/uL (130-400); RBC 3.71 10x6/uL (4.00-5.40); RDW 13.4 % (11.5-14.5); WBC 6.2 10x3/uL (4.8-10.8)
[2016-12-15 17:15] LABS: INR 0.99 (0.85-1.17)
[2016-12-15 17:20] LABS: ALBUMIN 2.5 g/dL (3.4-5.0); ANION GAP 9.1 mmol/L (8-16); BILIRUBIN - TOTAL 0.23 mg/dL (0.2-1.3); CARBON DIOXIDE 31.6 mmol/L (21.0-32.0); CREATININE - SERUM 0.8 mg/dL (0.6-1.3); POTASSIUM - SERUM 3.7 mmol/L (3.5-5.1); PROTEIN - SERUM 6.2 g/dL (6.4-8.2)
[2016-12-15 17:48] LABS: MAGNESIUM - SERUM 1.6 mg/dL (1.8-2.4)
[2016-12-15 17:55] LABS: TROPONIN-I 0.166 ng/mL (0.000-0.060)
[2016-12-16] VITALS (7 sets, daily range): BP systolic 110–130; BP diastolic 59–69; BMI 22.9
[2016-12-16 02:46] LABS: BASOPHILS 0.2 % (0-2); HEMATOCRIT 37.4 % (36.0-48.0); HEMOGLOBIN 11.6 g/dL (12-16); IMMATURE GRANULOCYTES 0.2 % (0-5); LYMPHOCYTES 22.3 % (15-50); MCH 30.7 pg (26.0-34.0); MCV 98.9 fL (80.0-100.0); MEAN PLATELET VOLUME 10.7 fL (7.4-10.4); MONOCYTES 11.4 % (2-11); NEUTROPHILS 64.9 % (40-80); PLATELET COUNT 220 10x3/uL (130-400); RBC 3.78 10x6/uL (4.00-5.40); RDW 13.4 % (11.5-14.5); WBC 5.8 10x3/uL (4.8-10.8)
[2016-12-16 02:52] LABS: INR 1.02 (0.85-1.17); PROTIME 13.2 SECONDS (11.6-15.0)
[2016-12-16 03:11] LABS: ALBUMIN 2.4 g/dL (3.4-5.0); BILIRUBIN - TOTAL 0.35 mg/dL (0.2-1.3); CALCIUM 8.1 mg/dL (8.5-10.1); CREATININE - SERUM 0.8 mg/dL (0.6-1.3); POTASSIUM - SERUM 3.8 mmol/L (3.5-5.1); PROTEIN - SERUM 5.9 g/dL (6.4-8.2)
[2016-12-16 03:18] LABS: ANION GAP 11.2 mmol/L (8-16); CARBON DIOXIDE 29.6 mmol/L (21.0-32.0)
[2016-12-16 03:19] LABS: TROPONIN-I 0.257 ng/mL (0.000-0.060)
--- NOTE | 2016-12-16 07:00 | NUR ---
RECEIVED REPORT, ASSUMED CARE OF PT. NO SIGNS OF ACUTE DISTRESS. BED ALARM ON, BED IN LOWEST POSITION, SIDE RAILS UP X 2, CALL LIGHT WITHIN REACH.
--- NOTE | 2016-12-16 11:12 | NUR ---
Patient Name: SAROJ WELCH Admission Status: ER Accout number: [id number] Admission Date: 12-15-2016 : 1930 Admission Diagnosis: Attending: PRIMITIVO PAGE Current LOS: 1 Anticipated DC Date: Planned Disposition: Primary Insurance: MEDICARE A & B Discharge Planning Comments: CM met with patient and daughter (Pura) to assess discharge planning needs. The patient is confused, but the daughter states that is normal. Patient is a resident at [facility] and plans to return there. Patient has a hospital bed, walker, wheelchair at home. CM will continue to follow and assist with discharge planning needs. PCP: [facility] Pura (Daughter) [phone] Beam Saw Operator: Zenobia Abraham * Is the patient Alert and Oriented? Yes 0 * How many steps to enter\exit or inside your home? 0 0 * PCP 0 * Pharmacy [facility] 0 * Preadmission Environment Assisted Living 0 * Facility Name [facility] 0 * ADLs Partial Dependent 0 * Partial ADLs (Assistance needed) Ambulation Medication Management 0 * Equipment Hospital Bed Rolling Walker Shower Chair Walker Wheelchair 0 * List name and contact numbers for known caregivers / representatives who currently or will assist patient after discharge: PURA REDDY DAUGHTER- [phone] 0 * Community resources currently utilized Assisted Living 0 * Additional services required to return to the preadmission environment? No 0 * Can the patient safely return to the preadmission environment? Yes 0 * Has this patient been hospitalized within the prior 30 days at any hospital? No 0 Grand Total: 0
--- NOTE | 2016-12-16 19:55 | NUR ---
NO CHANGE FROM SHIFT ASSESSMENT. NO SIGNS OF ACUTE DISTRESS. BED ALARM ON, BED IN LOWEST POSITION, SIDE RAILS UP X 2, CALL LIGHT WITHIN REACH.
[2016-12-17 04:00] VITALS: BP 104/56
[2016-12-17 06:05] LABS: BASOPHILS 0.2 % (0-2); EOSINOPHILS 1.4 % (0-7); HEMATOCRIT 38.3 % (36.0-48.0); HEMOGLOBIN 11.8 g/dL (12-16); IMMATURE GRANULOCYTES 0.2 % (0-5); LYMPHOCYTES 27.9 % (15-50); MCH 30.6 pg (26.0-34.0); MCHC 30.8 g/dL (31.0-37.0); MCV 99.5 fL (80.0-100.0); MONOCYTES 13.5 % (2-11); NEUTROPHILS 56.8 % (40-80); PLATELET COUNT 224 10x3/uL (130-400); RBC 3.85 10x6/uL (4.00-5.40); RDW 13.7 % (11.5-14.5)
[2016-12-17 06:25] LABS: ALBUMIN 2.6 g/dL (3.4-5.0); ANION GAP 10.3 mmol/L (8-16); BILIRUBIN - TOTAL 0.4 mg/dL (0.2-1.3); CALCIUM 8.7 mg/dL (8.5-10.1); CARBON DIOXIDE 32.8 mmol/L (21.0-32.0); CREATININE - SERUM 0.8 mg/dL (0.6-1.3); PROTEIN - SERUM 6.1 g/dL (6.4-8.2)
[2016-12-17 06:33] LABS: POTASSIUM - SERUM 3.1 mmol/L (3.5-5.1)
--- NOTE | 2016-12-17 07:00 | NUR ---
RECIEVED REPORT, ASSUMED CARE OF PT. PT RESTING, EASILY AROUSED, NO SIGNS OF ACUTE DISTRESS. BED ALARM ON. BED IN LOWEST POSITION, SIDE RAILS UP X 2, CALL LIGHT WITHIN REACH.
[2016-12-17 09:46] VITALS: BP 115/63
--- NOTE | 2016-12-17 11:43 | NUR ---
REHAB PRESCREENING Rehab referral received and chart reviewed. PT has not noted any ambulation prior to this note. Only side of bed. Rehab CL visited with patient who was very confused. At this time we do not feel she is able to actively participate in the three hours of therapy required as part of admission criteria. As a result she is not a good candidate for ARU. Thank you for this referral! Leilani Chambers, OPTICAL GLASS INSPECTOR Rehab Back End Web Developer
[2016-12-17 12:55] VITALS: BP 91/59
[2016-12-17 14:37] VITALS: Ht 160 cm; Wt 58.5 kg
--- NOTE | 2016-12-17 14:52 | NUR ---
DAUGHTER KARUNA REDDY VISITING PT, REQUESTS PT BE CHANGED TO DNR. DR. GALVAN OUT OF OFFICE THIS AFTERNOON, DR. ABREU ORDERED FOR PT TO BE CHANGED TO DNR.
[2016-12-17 16:42] VITALS: BP 97/51
[2016-12-17 20:20] VITALS: BP 105/59
--- NOTE | 2016-12-17 22:06 | NUR ---
BROKE THE POTASSIUM PILL IN HALF, SINCE IT IS SO LARGE. GAVE PATIENT /2 THE POTASSIUM TABLET, THE FIRST PILL. SHE TOOK IT, SHE STATED "THAT IS TOO BIG. I DO NOT WANT ANYMORE OF THAT. OR OF ANYTHING ELSE. I DO NOT NEED ANYMORE MEDICINE." I EXPLAINED TO PATIENT THAT HER POTASSIUM LEVEL IS LOW, AND SHE NEEDS POTASSIUM FOR HER MUSCLES INCLUDING HER HEART. SHE STATED "WELL, I DO NOT THINK I NEED IT." I STATED "OKAY WELL WE CAN WAIT A WHILE, LET'S GO AHEAD A TAKE A SMALL PILL." SHE TOOK THE PRAVACHOL, THEN STATED "I AM NOT TAKING ANYMORE." I STATED "OKAY. WE CAN TAKE A BREAK FROM MEDICINE AND DO THE IV." SHE STATED "I MEAN IT. I AM NOT TAKING ANYMORE MEDICINE." FLUSHED IV TO LEFT WRIST BEFORE ADMINISTERING THE LASIX, FLUSHED WITH 1ML, IT PUFFED UP UNDER THE SKIN. PATIENT STATED "OW! DON'T STICK ME WITH THAT!" EXPLAINED TO PATIENT THAT I DID NOT STICK HER, IT WAS THE SALINE BURNING BECAUSE THE IV IS NOT WORKING. EXPLAINED TO PATIENT THAT I NEED TO PUT A NEW IV IN TO ADMINISTER MEDICATION. SHE AGREED. STARTED AN IV TO HER RIGHT FOREARM. PULLED THE TAPE OFF TO D/C THE IV TO THE LEFT WRIST, PATIENT STATED "STOP THAT RIGHT NOW!" I TRIED TO EXPLAIN TO PATIENT THE IV IS BAD AND NEEDS TO COME OUT, PATIENT KEPT YELLING. SHE STATED "WHY ARE YOU JUST TRYING TO HURT ME? I DO NOT LIKE YOU." I STATED "THE IV IS BAD, IF I LEAVE IT IN IT CAN GET INFECTED. IT HAS TO COME OUT." D/C THE IV TO LEFT WRIST WITH CATHETER INTACT. PATIENT LOOKED AT HER IV IN HER RIGHT FOREARM, SHE STATED "TAKE THIS OUT OF MY ARM NOW!" I TRIED TO EXPLAIN TO PATIENT WHAT AN IV IS AND WHY SHE NEEDS IT. PATIENT DID NOT UNDERSTAND. SHE STATED "WHAT KIND OF SICK THING ARE YOU DOING TO ME? I HAVE NEVER HEARD OF THIS. ARE YOU SOME KIND OF QUACK?!" KEPT TALKING TO PATIENT, SHE FINALLY GOT OFF OF THE SUBJECT OF TAKING OUT THE IV. ADMINISTERED THE LASIX THROUGH THE IV TO THE RIGHT FOREARM. FLUSHED WITH SALINE. PATIENT HAD INCONTINENT VOID. CLEANED PATIENT UP AND CHANGED HER LINENS, PATIENT DID NOT COOPERATE, AND DID NOT UNDERSTAND WHAT WAS GOING ON. KEPT REORIENTING PATIENT, THAT SHE URINATED IN BED, AND NEEDS TO BE CLEANED UP. SHE DID NOT UNDERSTAND, SHE DISAGREED. SHE STATED "I THOUGHT YOU SAID YOU WERE NOT GOING TO STICK ME AGAIN?" EXPLAINED "I AM NOT GOING TO STICK YOU. I JUST NEED TO CLEAN YOU UP AND CHANGE YOUR LINENS." SHE COOPERATED, CHANGED HER LINENS. TRIED TO GET PATIENT TO TAKE HER ORAL MEDICATION SHE STATED "I AM NOT TAKING IT, AND I DO NOT WANT AN EXPLANATION FOR WHY I NEED IT. NOW GO AWAY."
[2016-12-18 00:40] VITALS: BP 108/58
[2016-12-18 04:56] VITALS: BP 98/53
[2016-12-18 05:01] LABS: BASOPHILS 0 % (0-2); EOSINOPHILS 0 % (0-7); HEMATOCRIT 40.4 % (36.0-48.0); HEMOGLOBIN 12.6 g/dL (12-16); IMMATURE GRANULOCYTES 0.2 % (0-5); LYMPHOCYTES 10.8 % (15-50); MCH 30.7 pg (26.0-34.0); MCHC 31.2 g/dL (31.0-37.0); MCV 98.3 fL (80.0-100.0); MEAN PLATELET VOLUME 10.8 fL (7.4-10.4); MONOCYTES 10.3 % (2-11); NEUTROPHILS 78.7 % (40-80); PLATELET COUNT 225 10x3/uL (130-400); RBC 4.11 10x6/uL (4.00-5.40); RDW 13.8 % (11.5-14.5); WBC 9.9 10x3/uL (4.8-10.8)
[2016-12-18 05:28] LABS: ALBUMIN 2.6 g/dL (3.4-5.0); ANION GAP 11.9 mmol/L (8-16); BILIRUBIN - TOTAL 0.61 mg/dL (0.2-1.3); CALCIUM 8.1 mg/dL (8.5-10.1); CARBON DIOXIDE 31.6 mmol/L (21.0-32.0); POTASSIUM - SERUM 3.5 mmol/L (3.5-5.1); PROTEIN - SERUM 6.3 g/dL (6.4-8.2)
[2016-12-18 05:33] LABS: CREATININE - SERUM 1.1 mg/dL (0.6-1.3)
--- NOTE | 2016-12-18 06:55 | NUR ---
REPORT RECIEVED, ASSUMED CARE OF PT. PT AWAKE IN BED, NO COMPLAINTS AT THIS TIME. BED ALARM ON. R FOREARM IV IN PLACE, SALINE LOCKED. DRSG CLEAN, DRY AND INTACT. PT IS A DNR. BED IN LOWEST POSITION, SIDE RAILS UP X 2, CALL LIGHT WITHIN REACH.
[2016-12-18 09:39] VITALS: BP 114/58
[2016-12-18 13:06] VITALS: BP 97/54
--- NOTE | 2016-12-18 14:28 | NUR ---
REFERRAL SENT TO [facility] PER DR BARNES ORDER
--- NOTE | 2016-12-18 16:47 | NUR ---
PT WILL BE DISCHARGED TOMORROW 12/19 TO [facility] WILL BE MEETING DAUGHTER OUT THERE TO SIGN PAPERWORK
[2016-12-18 16:59] VITALS: BP 93/53
[2016-12-18 20:00] VITALS: BP 96/57
--- NOTE | 2016-12-18 21:36 | NUR ---
ASSESSED PATIENT'S ORIENTATION. SHE ANSWERED HER NAME AND DATE OF CORRECTLY. SHE ANSWERED THE YEAR CORRECTLY. SHE WAS DISORIENTED TO PLACE, SHE STATED "WELL, I DON'T KNOW WHERE I AM." TOLD HER SHE IS IN THE HOSPITAL AT [facility], SHE STATED "OH, THAT'S RIGHT." I ASKED "WHY DID YOU COME TO THE HOSPITAL?" SHE STATED "BECAUSE A LOG FELL ON MY HEAD." I STATED "ARE YOU SURE IT WAS A LOG?" SHE STATED "YES. I AM SURE!" I STATED "I HEARD YOU FELL AND HIT YOUR HEAD." SHE STATED "NO, I DID NOT FALL. I GOT HIT IN THE HEAD WITH A LOG."
--- NOTE | 2016-12-18 21:54 | NUR ---
ADMINISTERED SCHEDULED MEDICATION, PATIENT COOPERATED AND TOOK PO MEDICATION. SHE WOULD NOT OPEN HER EYES FOR THE EYE DROPS SHE SHUT THEM VERY TIGHT, ENCOURAGED HER TO OPEN HER EYES, SHE SAID OKAY BUT STILL KEPT THEM SHUT TIGHT. TURNED PATIENT TO HER RIGHT SIDE, POSITIONED WITH A PILLOW. APPLIED A MEPILEX DRESSING TO RIGHT ANTERIOR LOWER LEG, OVER LACERATION, TO PROTECT IT. APPLIED SCDS TO BILATERAL LEGS. BED IN LOWEST POSITION, CALL LIGHT IN REACH. BED RAILS UP X'S 3. MONICO MAT ALARM ON.
[2016-12-19 00:08] VITALS: BP 105/51
--- NOTE | 2016-12-19 02:20 | NUR ---
PATIENT HAD INCONTINENT VOID. WITH ASSIST FROM POWERHOUSE TENDER CHANGED PATIENT'S LINENS AND CLEANED HER UP. TURNED PATIENT TO HER LEFT SIDE, POSITIONED WITH A PILLOW. REMOVED SCDS WHILE WE WERE CHANGING HER, REAPPLIED SCDS TO BILATERAL LEGS. BED IN LOWEST POSITION, CALL LIGHT IN REACH, BED RAILS UP X'S 3. MONICO MAT ALARM ON.
[2016-12-19 04:00] VITALS: BP 89/40
[2016-12-19 04:39] LABS: BASOPHILS 0.1 % (0-2); EOSINOPHILS 0.7 % (0-7); HEMATOCRIT 36.8 % (36.0-48.0); HEMOGLOBIN 11.4 g/dL (12-16); IMMATURE GRANULOCYTES 0.3 % (0-5); LYMPHOCYTES 19.7 % (15-50); MCH 30.5 pg (26.0-34.0); MCV 98.4 fL (80.0-100.0); MONOCYTES 14.6 % (2-11); NEUTROPHILS 64.6 % (40-80); PLATELET COUNT 202 10x3/uL (130-400); RBC 3.74 10x6/uL (4.00-5.40); RDW 13.8 % (11.5-14.5)
[2016-12-19 04:45] LABS: WBC 7.2 10x3/uL (4.8-10.8)
[2016-12-19 05:00] LABS: ALBUMIN 2.4 g/dL (3.4-5.0); ANION GAP 8.2 mmol/L (8-16); BILIRUBIN - TOTAL 0.6 mg/dL (0.2-1.3); CALCIUM 8.3 mg/dL (8.5-10.1); CARBON DIOXIDE 31.2 mmol/L (21.0-32.0); CREATININE - SERUM 1.2 mg/dL (0.6-1.3); POTASSIUM - SERUM 3.4 mmol/L (3.5-5.1); PROTEIN - SERUM 6.1 g/dL (6.4-8.2)
--- NOTE | 2016-12-19 05:48 | NUR ---
PATIENT HAD AN INCONTINENT VOID. CLEANED HER UP AND CHANGED HER PADS. TURNED HER ONTO HER RIGHT SIDE, POSITIONED WITH A PILLOW BEHIND HER BACK. BED IN LOWEST POSITION, CALL LIGHT IN REACH. BED RIALS UP X'S . MONICO MAT ALARM ON. SCDS TO BILATERAL LEGS.
--- NOTE | 2016-12-19 07:05 | NUR ---
PT REC'D FROM [facility]. RESTING IN BED. DRAKE BRIGHT, AT BEDSIDE OBTAINING VS. VSS. ALERT TO SELF, PLACE, AND TIME. WHEN ASKED IF SHE KNOWS WHY SHE IS HERE PT STATES, "A BEAM FELL AND HIT MY HEAD, AND NOW MY HEAD HURTS." REMINDED PT THAT SHE HAD FALLEN AT [place]. BRUISE NOTED TO R POSTERIOR NECK. SCD'S ON. SCABS AND BRUISES NOTED BILAT TO SHINS. PM TO L CHEST. REGULAR HEART RATE AND RHYTHM, LUNG SOUNDS CLEAR AND EQUAL BILAT, BOWEL SOUNDS ACTIVE X4 QUADS. PT ASKS, "WHEN WILL I GET TO LEAVE? I'M SUPPOSED TO BE LEAVING HERE TODAY." EXPLAINED TO PT THAT IT WOULD BE UP TO THE DOCTOR AND THAT THERE WAS NO DISCHARGE ORDER YET. PT HAS NO FURTHER QUESTIONS. BED LOW, REPOSITIONED TO HIGH FOWLERS, DENIES NEEDS. CPOC.
[2016-12-19 08:03] VITALS: BP 103/55
--- NOTE | 2016-12-19 08:45 | NUR ---
GRANDDAUGHTER AT BEDSIDE. OVER HEARD PT STATE, "THEY SAID I HAD A HEART ATTACK AND FELL AND HIT MY HEAD." PT APPEARS TO BE AAOX4 AT THIS TIME.
--- NOTE | 2016-12-19 12:10 | NUR ---
REPORT CALLED TO [facility], AT [facility]. WAS UNSURE ON WHETHER OR NOT PT WOULD TRANSFER BY AMBULANCE OR BY [facility]S PROVIDED TRANSPORTATION, BUT STATED THAT I WOULD CALL HER BACK WHEN SURE.
--- NOTE | 2016-12-19 13:51 | NUR ---
SPOKE WITH DR. GALVAN BECAUSE PRIMITIVO, DEBURRER MACHINE, HAD CALLED DUE PT COMPLAINTS OF VISUAL CHANGES. DR. GALVAN STATED, "WE CAN DO A CT OF THE HEAD, WITHOUT CONTRAST, BUT I'M STILL OKAY WITH HER GOING BACK TO [facility] IF THE DAUGHTER IS OKAY WITH IT. I'LL LEAVE IT UP TO HER." RELAYED THIS TO THE DAUGHTER. DAUGHTER STATED, "WELL THE CT WON'T REALLY HELP ANYTHING, SO I'M OKAY WITH HER GOING BACK." SPOKE WITH [facility], REGARDING TRASNPORTATION. DAUGHTER PREFERS HER TO GO BACK VIA [facility]'S ARRANGED TRANSPORTATION. PIV TO R FA DC'D WITH STEFANIE INTACT. BED LOW, CALL LIGHT IN REACH, AWAITING [facility] TO ARRIVE.
--- NOTE | 2016-12-19 15:20 | NUR ---
PATIENT SITTING UP IN WC AWAITING DC INSTRUCTIONS. NO COMPLAINTS AT THIS TIME. FAMILY AT BEDSIDE. CALL LIGHT WITHIN REACH.
--- NOTE | 2016-12-19 15:43 | NUR ---
DISCHARGE INSTRUCTIONS DISCUSSED WITH [facility], AT [facility]. NO QUESTIONS OR CONCERNS VOICED. FULL DC INSTRUCTIONS, MED LIST, HEALTH SUMMARY, AND FACESHEET SENT WITH INSTRUCTIONS. PIV TO R FA DC'D WITH CATHETER INTACT. ESCORTED OUT VIA WC BY [facility].
--- NOTE | 2016-12-19 20:12 | NUR ---
Late Entry 0930 TC to [facility] [phone]. MCKENNA spoke with Filemon, the nurse. Faxed discharge summary, d/c med list and discharge order to [phone]. She stated she had to call her business administrator to see if patient had to be evaluated before returning. Primary nurse also to call report . MCKENNA spoke with Betsy and provided contact phone numbers. TC to [facility]. Spoke with conservation educatorErvin. He contacted the [facility] admitting nurse to follow up with primary nurse and [facility]. patient discharged back to facility via [facility].
== END 2016-12-19 15:45 | disposition home or self-care (01) | DRG 281 ==
LOC: D.ER 16:08 → D.MS 19:34 → D.ER 19:34 → OBSVTIME 19:34 → D.MS 12-16 15:42
PROVIDERS: Nurse Practitioner Family; ADMIT Family Medicine
DX: I21.4 Non-ST elevation (NSTEMI) myocardial infarction (principal); I50.22 Chronic systolic (congestive) heart failure; S00.03XA Contusion of scalp, initial encounter; W18.30XA Fall on same level, unspecified, initial encounter; Z95.0 Presence of cardiac pacemaker; I11.0 Hypertensive heart disease with heart failure; Z66 Do not resuscitate; Z51.5 Encounter for palliative care; F03.90 Unspecified dementia, unspecified severity, without behavioral disturbance, psychotic disturbance, mood disturbance, and anxiety; E78.5 Hyperlipidemia, unspecified; I08.1 Rheumatic disorders of both mitral and tricuspid valves